=== PATIENT | male | born 1955 | race Two or more races ===

== ENCOUNTER 2025-02-26 19:46 | Inpatient (IN) | payer OTHER ==
[~2025-02-26] VITALS: Ht 167.6 cm; Wt 65.6 kg
--- NOTE | 2025-02-26 20:23 | ECG ---
[facility] Test Date: 2025-02-26 Test Time: 20:07:21 Pat Name: MENDY COY Department: [facility] ED Patient ID: [facility]-[id number] Room: [address] [place] [address] Gender: M Cash Management Coordinator: RITU : 1955 Requested By: EMERGENCY EMERGENCY Order Number: [id number] Reading MD: Dmitriy Freire Measurements Intervals [place] Rate: 82 P: 70 CO: 141 QRS: 71 QRSD: 88 T: 17 QT: 379 QTc: 443 Interpretive Statements Sinus rhythm LAE, consider biatrial enlargement RSR' in V1 or V2, probably normal variant Borderline repolarization abnormality Borderline ST elevation, anterior leads Electronically Signed On 03-03-2025 14:21:24 PDT by Dmitriy Freire Please click the below link to view image of tracing.
[2025-02-26] MEDS ORDERED: LABETALOL HCL 20 MG/4 ML VL IV ONE (21:15)
--- NOTE | 2025-02-26 21:54 | DVH ---
CHEST RADIOGRAPH Indication: cp Technique: Single frontal view of the chest was obtained Comparison: None FINDINGS: Lines and Tubes: None Lungs: No focal consolidation. Pleura: No effusion. No pneumothorax. Cardiomediastinal contours: Unremarkable Bones: No acute osseous abnormality. IMPRESSION: 1. No acute cardiopulmonary disease.
[2025-02-26 21:55] LABS: Hematocrit 36.4 % (41.0-53.0); Hemoglobin 12.5 g/dL (13.5-17.5); Mean Corpuscular Hemoglobin 31.0 pg (28.0-32.0); Mean Corpuscular Volume 90.6 fL (80.0-100.0); Nucleated Red Blood Cells % 0.0 %
--- NOTE | 2025-02-26 21:59 | ED.PDOC ---
HPI Comments 69 year old male presents to the ED with a chief complaint of hypertension onset today (02/26/25). Patient states he went for prescription refill with PCP, BP was elevated, was given medication, advised to go to urgent care. Patient states he went to urgent care, BP was elevated, medication was given, BP was still elevated, recommended to come to ED. Upon ED arrival, BP was 230/127. He states he is compliant with his medication, takes Lisinopril, Metformin daily. Current ly he is experiencing blurred vision. Denies headache, dizziness, chest pain, shortness of breath, fever, chills, numbness/tingling, nausea, vomiting, diarrhea. No other symptoms or modifying factors present at this time. Chief Complaint: High Blood Pressure Time Seen by MD: 21:40 Reviewed Notes: Medications, Allergies Allergies: Coded Allergies: NO KNOWN ALLERGIES (Unverified , 02/26/25) Information Source: Patient, Spouse Mode of Arrival: Ambulatory Severity: Moderate Timing: Hours Duration: Since onset Prehospital treatment: None Onset: At Rest Cardiac Risk Factors: Hyperlipidemia, HTN, Diabetes PE Risk Factors: None History of: None Modifying Factors: Nothing Associated Signs and Symptoms: Other Vital Signs Vital Signs Date Time Temp Pulse Resp B/P (MAP) Pulse Ox O2 Delivery O2 Flow Rate FiO2 02/27/25 02:21 206/91 02/27/25 02:17 97.4 75 16 99 97.4 Physical Exam PHYSICAL EXAM: General: Awake, alert and oriented. No acute distress. Skin: Skin in warm, dry and intact. Appropriate color for ethnicity. HEENT: The head is normocephalic and atraumatic. Conjunctivae are clear without exudates or hemorrhage. Sclera is non-icteric. EOM are intact. No signs of nystagmus. Eyelids are normal in appearance without swelling or lesions. Oral mucosa is pink and moist Neck: The neck is supple with normal range of motion. No JVD. Cardiac: Heart rate and rhythm are normal. No murmurs, gallops, or rubs are auscultated. Respiratory: No signs of respiratory distress. Lung sounds are clear in all lobes bilaterally without rales, rhonchi, or wheezes. Abdominal: Abdomen is soft, non-tender without distention, guarding or rigidity. Bowel sounds are present and normoactive in all four quadrants. Extremities: Upper and lower extremities are atraumatic in appearance without deformity or edema. Neurological: The patient is awake, alert and oriented to person, place, and time with normal speech. Speech is clear. There is no facial asymmetry. Psychiatric: Appropriate mood and affect. Good judgement and insight. Review of Systems: REVIEW OF SYSTEMS: General: No fever, no chills, or fatigue HEENT: No sore throat, no earache, no congestion, no neck pain. Cardiac: No chest pain. No palpitations. Lungs: No shortness of breath, no cough. GI: No nausea, no vomiting, no diarrhea, no constipation, no abdominal pain : No dysuria, frequency, or urgency. No hematuria. Musculoskeletal: No joint pain , no joint swelling, no extremity edema. Skin: No rash, no itching. Neuro: No headache, no dizziness, no weakness Past Medical History PAST MEDICAL HISTORY: DM, High Lipids, HTN Surgical History: Denies all surgeries Family History Family History: Reviewed,noncontributory to illness, No family hx of Cancer, No family hx of DM, No family hx of Heart thomas, No family hx of HTN, No family hx ofKidney thomas, No family hx of Liver thomas, No family hx of Lung thomas, No family hx of Stroke Social History Smoker: Non-Smoker Alcohol: Denies ETOH Use Drugs: Denies Drug Use Lives In: Home EKG EKG : Pulse Rate (adult): 82 Cardiac Rhythm: NSR Hypertrophy: LAE Was a procedure done? Was a procedure done?: No CP Differential Dx Differential Diagnosis: Other (Differential diagnoses considered include acute ischemic coronary syndrome, aortic dissection, cardiac tamponade, mediastinitis, pulmonary embolus, pneumothorax, tension pneumothorax, esophageal rupture, coronary artery vasospasm, myocarditis, pericarditis, pneumonia, pulmonary edema, esophageal tear, pancreatitis, aortic stenosis, dilated cardiomyopathy, hypertrophic cardiomyopathy, mitral valve prolapse, malignancy, pleuritis, pneumomediastinum, primary pulmonary hypertension, cholecystitis, esophageal spasm, esophagus, gastritis, GERD, peptic ulcer disease, costochondritis, fibromyalgia, rib fracture, herpes zoster, radicular syndromes, thoracic outlet syndrome, somatization.) X-Ray, Labs, Meds, VS Vital Signs Date Time Temp Pulse Resp B/P (MAP) Pulse Ox O2 Delivery O2 Flow Rate FiO2 02/27/25 02:21 206/91 10/23/25 02:17 97.4 75 16 (129) 99 97.4 02/26/25 23:46 185/100 (128) 02/26/25 21:59 82 02/26/25 20:07 82 02/26/25 19:48 91 18 230/127 99 Lab Test 02/26/25 22:50 02/26/25 21:31 Range/Units Troponin I High Sensitivity 11 10 </=54 ng/L White Blood Count 10.1 4.4-10.8 10^3/uL Red Blood Count 4.02 L 4.5-5.90 10^6/uL Hemoglobin 12.5 L 13.5-17.5 g/dL Hematocrit 36.4 L 41.0-53.0 % Mean Corpuscular Volume 90.6 80.0-100.0 fL Mean Corpuscular Hemoglobin 31.0 28.0-32.0 pg Mean Corpuscular Hemoglobin Concent 34.2 32.0-36.0 g/dL Red Cell Distribution Width 13.4 11.8-14.3 % Platelet Count 422 140-450 10^3/uL Mean Platelet Volume 7.3 6.9-10.8 fL Neutrophils (%) (Auto) 68.3 37.0-80.0 % Lymphocytes (%) (Auto) 20.9 10.0-50.0 % Monocytes (%) (Auto) 7.2 0.0-12.0 % Eosinophils (%) (Auto) 3.0 0.0-7.0 % Basophils (%) (Auto) 0.6 0.0-2.0 % Neutrophils # (Auto) 6.9 1.6-8.6 10 ^3/uL Lymphocytes # (Auto) 2.1 0.4-5.4 10 ^3/uL Monocytes # (Auto) 0.7 0-1.3 10 ^3/uL Eosinophils # (Auto) 0.3 0-0.8 10 ^3/uL Basophils # (Auto) 0.1 0-0.2 10 ^3/uL Nucleated Red Blood Cells 0.0 % Sodium Level 141 136-145 mmol/L Potassium Level 4.6 3.5-5.1 mmol/L Chloride Level 107 98-107 mmol/L Carbon Dioxide Level 25 20-31 mmol/L Anion Gap 9 5-15 Blood Urea Nitrogen 30 H 9-23 mg/dL Creatinine 1.85 H 0.700-1.30 mg/dL Glomerular Filtration Rate Calc 39 >90 mL/min BUN/Creatinine Ratio 16.2 10.0-20.0 Serum Glucose 71 L 74-106 mg/dL Calcium Level 8.9 8.7-10.4 mg/dL B-Type Natriuretic Peptide 111.71 0-100 pg/mL Current Medications Medications (Trade) Dose Ordered Sig/[place] Route Start Time Stop Time Status Last Admin Hydralazine HCl (Apresoline Injection) 10 mg ONCE ONCE IV 02/27/25 02:15 02/27/25 02:16 DC 02/27/25 02:21 [place] [id number] Ph: [phone] DIAGNOSTIC IMAGING Diagnostic Imaging Report : [id number] Signed PATIENT: MENDY COY ACCT: [id number] UNIT: [id number] : 1955 LOC: ER ROOM / BED: / AGE / SEX: 69 / M ADM STATUS: REG ER SERVICE 11 ORDERING PHYSICIAN: GARY CELIS MD PROCEDURE(s): CXR1 - CHEST XRAY 1 VIEW REASON: cp ORDER NUMBER(s): [id number], ACCESSION NUMBER(s): [id number] CHEST RADIOGRAPH Indication: cp Technique: Single frontal view of the chest was obtained Comparison: None FINDINGS: Lines and Tubes: None Lungs: No focal consolidation. Pleura: No effusion. No pneumothorax. Cardiomediastinal contours: Unremarkable Bones: No acute osseous abnormality. IMPRESSION: 1. No acute cardiopulmonary disease. ATED BY: ANNEMARIE PHILLIPS Jr., DO DICTATED DATE/TIME: 02/26/252151 SIGNED BY: ANNEMARIE PHILLIPS Jr., DO SIGNED DATE/TIME: 02/26/252151 CC: Time of 1ST Reevaluation: 22:10 Reevaluation 1ST: Unchanged Patient Education/Counseling: Diagnosis, Treatment, Need For Follow Up Family Education/Counseling: Diagnosis, Treatment, Need For Follow Up SEPSIS Sepsis Screen Date sepsis recognized/suspect: Feb 26, 2025 Time Sepsis recognized/suspect: 1951 Recent Procedure: No On Antibiotic Therapy: No Respiratory Rate >20: No Heart Rate >90: No Temp<36 C (96.8 F) or >38.3 C: No SBP <90 or MAP <65 mmHG: No New Acute Mental Status Change: No Is the patient on CPAP, BIPAP,: No Physician Orders Chest Xray 1 View (02/26/25 21:12) Vital Signs Q1HR (02/26/25 21:12) Saline Lock (02/26/25 21:12) Batching Operator (02/26/25 ) Vital Signs Date Time Temp Pulse Resp B/P (MAP) Pulse Ox O2 Delivery O2 Flow Rate FiO2 02/27/25 02:21 206/91 02/27/25 02:17 97.4 75 16 206/ (129) 99 97.4 02/26/25 23:46 185/100 (128) 02/26/25 21:59 82 02/26/25 20:07 82 02/26/25 19:48 91 18 230/127 99 Laboratory Tests Test 02/26/25 21:31 White Blood Count 10.1 10^3/uL (4.4-10.8) Medications Medications Dose Ordered Sig/[place] Route Start Time Stop Time Status Last Admin Dose Admin Hydralazine HCl 10 mg ONCE ONCE IV 02/27/25 02:15 02/27/25 02:16 DC 02/27/25 02:21 Departure 1 Departure Time of Disposition: 00:28 Impression: Primary Impression: Hypertensive urgency Additional Impression: BRYAN (acute kidney injury) Disposition: ADMITTED INPATIENT Condition: Stable Comments MDM: Patient admitted to hospitalist service for further treatment, evaluation and monitoring. Extensive evaluation was performed in attempt to identify or rule out: (See differential diagnosis section) The following tests were ordered, and results were reviewed by me and discussed with patient: (See diagnostic results section) The following test were independently interpreted by me: EKG I reviewed and agreed with the following test results read by other providers: Chest x-ray I reviewed the following notes from the pt's past medical encounters: N/A Additional information was gathered from interviewing the following independent historians: Patient's family at bedside Decision regarding hospitalization or escalation of hospital level of care: Risk and benefits of admission for further treatment of patient's condition was considered. Due to patient's current clinical condition, high risk of decline and poor outcome if discharged and need for further inpatient management and monitoring, patient will be admitted to the hospital. Critical Care Note Critical Care Time?: No Stability Stability form required: No Heart Score Heart Score: Heart Score Response (Comments) Value History N/A 0 EKG N/A 0 Age N/A 0 Risk Factors N/A 0 Troponin N/A 0 Total 0 I personally scribed for GARY CELIS MD ([email or web address]) on 02/26/25 at 21:59. Electronically submitted by Joanna Michael ([email or web address]). I personally scribed for GARY CELIS MD ([email or web address]) on 02/26/25 at 23:19. Electronically submitted by Joanna Michael ([email or web address]). GARY CELIS MD Feb 26, 2025 21:59
[2025-02-26 22:07] LABS: Potassium 4.6 mmol/L (3.5-5.1); Sodium 141 mmol/L (136-145)
[2025-02-26 22:08] LABS: Anion Gap 9 (5-15); Carbon Dioxide 25 mmol/L (20-31)
[2025-02-26 22:09] LABS: Calcium 8.9 mg/dL (8.7-10.4)
[2025-02-26 22:14] LABS: BUN/Creatinine Ratio 16.2 (10.0-20.0); Blood Urea Nitrogen 30 mg/dL (9-23); Chloride 107 mmol/L (98-107); Glucose 71 mg/dL (74-106)
[2025-02-27] MEDS: LABETALOL HCL 20 MG/4 ML VL IV ONE (02:20)
[2025-02-27] MEDS: hydrALAZINE HCL 20 MG/ML VL IV ONE (02:21)
[2025-02-27] MEDS ORDERED: ONDANSETRON HCL 4 MG/2 ML VIAL IV PRN (03:15)
[2025-02-27] MEDS: SOD CHL 0.45% 1,000 ML IV SCH (03:15)
[2025-02-27] MEDS ORDERED: DOCUSATE SOD 100 MG CAP PO PRN (03:15)
[2025-02-27] MEDS ORDERED: DEXTROSE (50%) 50ML SYRG IV PRN (03:15)
[2025-02-27] MEDS ORDERED: ACETAMINOPHEN 325 MG TAB PO PRN (03:15)
[2025-02-27] MEDS ORDERED: MORPHINE SULFATE INJ 2 MG/ml SYRG IV PRN ×2 (03:15)
[2025-02-27] MEDS ORDERED: HYDROcodone-ACET 5/325MG TAB PO PRN (03:15)
[2025-02-27] MEDS ORDERED: NITROGLYCERIN 0.4 MG SL TAB SL PRN (03:15)
--- NOTE | 2025-02-27 03:19 | DVHHP2 ---
History of Present Illness Reason for Visit: Hypertension History of Present Illness 69-year-old male with past medical history of DM, hypertension, hyperlipidemia presents for uncontrolled blood pressure. Patient initially went to his PCP office for dental pain and was then sent to urgent care for high blood pressure. While he was at urgent care he was treated with clonidine which was ineffective. Patient states he is on lisinopril 20 mg for high blood pressure. And atorvastatin 20 mg for HLD. On arrival to the emergency department patient's blood pressure was 230/127. Emergency department ordered IV labetalol which was ineffective. In addition patient was treated with IV hydralazine, blood pressure remained 206/97. During the emergency department evaluation CBC is unremarkable. Na 141, K4.6, BUN 30, creatinine 1.85, GFR 39. BNP 111. Troponin-02/15. CXR no acute cardiopulmonary disease. At this time patient denies fevers, chills, dizziness, headaches, sudden onset blurred vision, shortness of breath, chest pain, palpitations, nausea, vomiting, leg swelling. Cardiovascular: HTN, hyperipidemia Endocrine: Diabetes Smoke: No ALCOHOL: none Drugs: None Lives: with Family Review of Systems Constitutional: No: Fever, Chills, Sweats, Weakness, Malaise, Other Eyes: No: Pain, Vision change, Conjunctivae inflammation, Eyelid inflammation, Other, Redness ENT: Mouth pain; No: Ear pain, Ear discharge, Nose pain, Nose discharge, Nose congestion, Mouth swelling, Throat pain, Throat swelling, Other Respiratory: No: Cough, Dry, Shortness of breath, SOB with excertion, Wheezing, Hemoptysis, Pleuritic Pain, Sputum, Wheezing, Other Cardiovascular: No: Chest Pain, Palpitations, Orthopnea, Paroxysmal Noc. D yspnea, Edema, Lt Headedness, Other Gastrointestinal: No: Nausea, Vomiting, Abdominal Pain, Diarrhea, Constipation, Melena, Hematochezia, Other Genitourinary: No Dysuria, No Frequency, No Incontinence, No Hematuria, No Retention, No Other Musculoskeletal: No: other, neck pain, shoulder pain, arm pain, back pain, hand pain, leg pain, foot pain Skin: No: Rash, Lesions, Jaundice, Bruising, Other Neurological: No: Weakness, Numbness, Incoordination, Change in speech, Confusion, Seizures, Other Allergies: Coded Allergies: NO KNOWN ALLERGIES (Unverified , 02/26/25) Medications Current Medications Medications Dose Ordered Sig/[place]idan Route Start Time Stop Time Status Last Admin Dose Admin Docusate Sodium 100 mg BIDPRN PRN PO 02/27/25 03:15 Acetaminophen 650 mg Q6HP PRN PO 02/27/25 03:15 Sodium Chloride 1,000 ml @ 75 mls/hr [id number] IV 02/27/25 03:15 Acetaminophen/ Hydrocodone Bitart 1 tab Q4HP PRN PO 02/27/25 03:15 Ondansetron HCl 4 mg Q4HP PRN IV 02/27/25 03:15 Morphine Sulfate 2 mg Q4HPRN PRN IV 02/27/25 03:15 Enoxaparin Sodium 40 mg DAILY SC 02/27/25 10:00 Nitroglycerin 0.4 mg Q5MINP PRN SL 02/27/25 03:15 Morphine Sulfate 2 mg Q30M PRN IV 02/27/25 03:15 Nicardipine/ Sodium Chloride 200 ml @ 50 mls/hr Q4H IV 02/27/25 03:15 Diagnostic Test (Pha) 1 strip ACHS 02/27/25 07:00 Insulin Human Regular ACHS SC 02/27/25 07:00 Dextrose 50 ml UD PRN IV 02/27/25 03:15 Hydralazine HCl 10 mg Q4HP PRN IV 02/27/25 03:15 Labetalol HCl 10 mg Q4HP PRN IV 02/27/25 03:15 Atorvastatin Calcium 20 mg DAILY PO 02/27/25 10:00 Metoprolol Tartrate 25 mg BID PO 02/27/25 10:00 UNV Exam Vital Signs Vital Signs Date Time Temp Pulse Resp B/P (MAP) Pulse Ox O2 Delivery O2 Flow Rate FiO2 02/27/25 02:21 206/91 02/27/25 02:17 97.4 75 16 99 97.4 General Appearance: Alert, Oriented X3, Cooperative, mild distress HEENT: Atraumatic, PERRLA, EOMI Respiratory: Clear to auscultation, Normal air movement Cardiovascular: Regular rate, Normal S1, Normal S2 Abdominal: Normal bowel sounds, Soft, No tenderness Extremities: No cyanosis, No edema Skin: No rashes, No breakdown Neuro: Normal gait, Normal speech, Strength at 5/5 X4 ext Psych/Mental Status: Mental status NL, Mood NL Labs/Xrays Labs Test 02/26/25 22:50 02/26/25 21:31 Range/Units Troponin I High Sensitivity 11 </=54 ng/L White Blood Count 10.1 4.4-10.8 10^3/uL Red Blood Count 4.02 L 4.5-5.90 10^6/uL Hemoglobin 12.5 L 13.5-17.5 g/dL Hematocrit 36.4 L 41.0-53.0 % Mean Corpuscular Volume 90.6 80.0-100.0 fL Mean Corpuscular Hemoglobin 31.0 28.0-32.0 pg Mean Corpuscular Hemoglobin Concent 34.2 32.0-36.0 g/dL Red Cell Distribution Width 13.4 11.8-14.3 % Platelet Count 422 140-450 10^3/uL Mean Platelet Volume 7.3 6.9-10.8 fL Neutrophils (%) (Auto) 68.3 37.0-80.0 % Lymphocytes (%) (Auto) 20.9 10.0-50.0 % Monocytes (%) (Auto) 7.2 0.0-12.0 % Eosinophils (%) (Auto) 3.0 0.0-7.0 % Basophils (%) (Auto) 0.6 0.0-2.0 % Neutrophils # (Auto) 6.9 1.6-8.6 10 ^3/uL Lymphocytes # (Auto) 2.1 0.4-5.4 10 ^3/uL Monocytes # (Auto) 0.7 0-1.3 10 ^3/uL Eosinophils # (Auto) 0.3 0-0.8 10 ^3/uL Basophils # (Auto) 0.1 0-0.2 10 ^3/uL Nucleated Red Blood Cells 0.0 % Sodium Level 141 136-145 mmol/L Potassium Level 4.6 3.5-5.1 mmol/L Chloride Level 107 98-107 mmol/L Carbon Dioxide Level 25 20-31 mmol/L Anion Gap 9 5-15 Blood Urea Nitrogen 30 H 9-23 mg/dL Creatinine 1.85 H 0.700-1.30 mg/dL Glomerular Filtration Rate Calc 39 >90 mL/min BUN/Creatinine Ratio 16.2 10.0-20.0 Serum Glucose 71 L 74-106 mg/dL Calcium Level 8.9 8.7-10.4 mg/dL B-Type Natriuretic Peptide 111.71 0-100 pg/mL SEPSIS Sepsis Screen Date sepsis recognized/suspect: Feb 26, 2025 Time Sepsis recognized/suspect: 1951 Recent Procedure: No On Antibiotic Therapy: No Respiratory Rate >20: No Heart Rate >90: No Temp<36 C (96.8 F) or >38.3 C: No SBP <90 or MAP <65 mmHG: No New Acute Mental Status Change: No Is the patient on CPAP, BIPAP,: No Physician Orders Chest Xray 1 View (02/26/25 21:12) Vital Signs Q1HR (02/26/25 21:12) Saline Lock (02/26/25 21:12) Coil Connector (02/26/25 ) Admit (02/27/25 03:02) Code Status (02/27/25 03:02) Vital Signs .PER UNIT PROTOCOL (02/27/25 03:02) Review Orders With Adm.Md (02/27/25 03:02) Encourage Activity As Tolerate (02/27/25 03:02) Consistent Carb(Ccho)Diabetes (02/27/25 Breakfast) Oxygen By Face Mask (02/27/25 03:02) Docusate Sodium Capsule (Colace Capsule) (02/27/25 03:15) Acetaminophen Tablet (Tylenol Tablet) (02/27/25 03:15) Notify Md Of Changes From Base (02/27/25 03:02) Advance Directive (02/27/25 03:02) Echo 2d Mode Cardiac Dop (02/27/25 03:02) Basic Metabolic Panel (02/27/25 05:00) Basic Metabolic Panel (02/28/25 05:00) Basic Metabolic Panel (03/01/25 05:00) Basic Metabolic Panel (03/02/25 05:00) Urinalysis (02/27/25 03:02) Complete Blood Count (02/27/25 05:00) Complete Blood Count (02/28/25 05:00) Complete Blood Count (03/01/25 05:00) Complete Blood Count (03/02/25 05:00) Sod Chl 0.45% (Sodium Chloride 0.45% Via (02/27/25 03:15) Patient Condition (02/27/25 03:02) Allergies (02/27/25 03:02) Hydrocodone-Acet 5/325mg Tab ([place] 5/32 (02/27/25 03:15) Ondansetron Hcl (Zofran) (02/27/25 03:15) Drug Screen (02/27/25 03:02) Morphine Sulfate Injection (02/27/25 03:15) Enoxaparin Sodium (Lovenox) (02/27/25 10:00) Sequential Compression Device (02/27/25 ) Nitroglycerin Sublingual (Ntrostat Subli (02/27/25 03:15) Morphine Sulfate Injection (02/27/25 03:15) Stat Ekg For Chest Pain (02/27/25 03:02) Notify Of Changes From Base (02/27/25 03:02) Field Trainer For 24 Hours (02/27/25 03:02) Emergency Dysrhythmia Protocol (02/27/25 03:02) Rhythm Strips Once Every Shift (02/27/25 03:02) Oxygen By Nasal Cannula (02/27/25 03:02) Nicardipine 20 Mg/200 Ml (Cardene Iv) (02/27/25 03:15) * Cardiology Consult (02/27/25 03:02) Glucose Blood (Accu-Chek Comfort Curve T (02/27/25 07:00) Insulin R (Human) (Insulin R) (02/27/25 07:00) Dextrose 50% Syringe (02/27/25 03:15) Hydralazine Injection (Apresoline Inject (02/27/25 03:15) Labetalol Hcl (Labetalol Hcl) (02/27/25 03:15) Atorvastatin (Lipitor) (02/27/25 10:00) Metoprolol Tartrate Tablet (Lopressor Ta (02/27/25 10:00) Vital Signs Date Time Temp Pulse Resp B/P (MAP) Pulse Ox O2 Delivery O2 Flow Rate FiO2 02/27/25 02:21 206/91 02/27/25 02:17 97.4 75 16 206/91 (129) 99 97.4 02/26/25 23:46 185/100 (128) 02/26/25 21:59 82 02/26/25 20:07 82 02/26/25 19:48 91 18 230/127 99 Laboratory Tests Test 02/26/25 21:31 White Blood Count 10.1 10^3/uL (4.4-10.8) Medications Medications Dose Ordered Sig/[place] Route Start Time Stop Time Status Last Admin Dose Admin Hydralazine HCl 10 mg ONCE ONCE IV 02/27/25 02:15 02/27/25 02:16 DC 02/27/25 02:21 10 MG Assessment/Plan Assessment/Plan Hypertensive urgency Acute kidney injury Plan Admit ICU Cardiology consult. Echocardiogram. Nicardipine drip. As needed antihypertensives for optimal BP management. Consult nephrology. Monitor BMP. Trend BUN/creatinine. Correct electrolytes as needed. Hold lisinopril. IVF DVT PPX Lovenox Plan discussed with: Patient, Spouse My Orders Orders - CHENTE MAGAÑA NP Procedure Category Date Status Time Admit ADMIT 02/27/25 Transmitted 03:02 Code Status CODE 02/27/25 Transmitted 03:02 Vital Signs RADHA 02/27/25 In Process 03:02 Review Orders With RADHA 02/27/25 In Process Adm. 03:02 Encourage Activity As RADHA 02/27/25 In Process Tolerate 03:02 Consistent DIET 02/27/25 Transmitted Carb(Ccho)Diabetes Breakfast Oxygen By Face Mask RT 02/27/25 Transmitted 03:02 Docusate Sodium PHA 02/27/25 In Process Capsule (Colace 03:15 Acetaminophen Tablet PHA 02/27/25 In Process (Tylenol Tablet) 03:15 Notify Of Changes RADHA 02/27/25 In Process From Base 03:02 Advance Directive RADHA 02/27/25 In Process 03:02 Echo 2d Mode Cardiac US 02/27/25 Logged DOP 03:02 Basic Metabolic Panel LAB 02/27/25 Logged 05:00 Basic Metabolic Panel LAB 02/28/25 Verified 05:00 Basic Metabolic Panel LAB 03/01/25 Verified 05:00 Basic Metabolic Panel LAB 03/02/25 Verified 05:00 Urinalysis LAB 02/27/25 Logged 03:02 Complete Blood Count LAB 02/27/25 Logged 05:00 Complete Blood Count LAB 02/28/25 Verified 05:00 Complete Blood Count LAB 03/01/25 Verified 05:00 Complete Blood Count LAB 03/02/25 Verified 05:00 Sod Chl 0.45% (Sodium PHA 02/27/25 In Process Chloride 0.45% Via 03:15 Patient Condition ORDERS 02/27/25 Transmitted 03:02 Allergies RADHA 02/27/25 In Process 03:02 Hydrocodone-Acet PHA 02/27/25 In Process 5/325mg Tab ([place] 03:15 Ondansetron Hcl PHA 02/27/25 In Process (Zofran) 03:15 Drug Screen LAB 02/27/25 Logged 03:02 Morphine Sulfate PHA 02/27/25 In Process Injection 03:15 Enoxaparin Sodium PHA 02/27/25 In Process (Lovenox) 10:00 Sequential RADHA 02/27/25 In Process Compression Device Nitroglycerin PHA 02/27/25 In Process Sublingual (Ntrostat 03:15 Morphine Sulfate PHA 02/27/25 In Process Injection 03:15 Stat Ekg For Chest RADHA 02/27/25 In Process Pain 03:02 Notify Md Of Changes RADHA 02/27/25 In Process From Base 03:02 Field Trainer For RADHA 02/27/25 In Process 24 Hours 03:02 Emergency Dysrhythmia RADHA 02/27/25 In Process Protocol 03:02 Rhythm Strips Once RADHA 02/27/25 In Process Every Shift 03:02 Oxygen By Nasal RT 02/27/25 Transmitted Cannula 03:02 Nicardipine 20 Mg/200 PHA 02/27/25 In Process Ml (Cardene Iv) 03:15 * Cardiology Consult CONS 02/27/25 Transmitted 03:02 Glucose Blood PHA 02/27/25 In Process (Accu-Chek Comfort 07:00 Insulin R (Human) PHA 02/27/25 In Process (Insulin R) 07:00 Dextrose 50% Syringe PHA 02/27/25 In Process 03:15 Hydralazine Injection PHA 02/27/25 In Process (Apresoline Inject 03:15 Labetalol Hcl PHA 02/27/25 In Process (Labetalol Hcl) 03:15 Atorvastatin (Lipitor) PHA 02/27/25 In Process 10:00 Metoprolol Tartrate PHA 02/27/25 Logged Tablet (Lopressor Ta 10:00 Date of Service: Feb 27, 2025 Billing Provider: IRAIDA VARNER MD Common Visit Codes: NOT BILLABLE CHENTE MAGAÑA NP Feb 27, 2025 03:19
[2025-02-27] MEDS: LABETALOL HCL 20 MG/4 ML VL IV PRN (03:41)
[2025-02-27 03:52] VITALS: PULSE 74; RESP 20; O2SAT 97
[2025-02-27] MEDS: hydrALAZINE HCL 20 MG/ML VL IV PRN (05:11)
[2025-02-27] MEDS: InsuLIN REG 1unit/0.01ml Soln (100units/ml) SC SCH (07:00)
[2025-02-27] MEDS: ACCU-CHEK COMFORT CURVE STRIP VI SCH (07:02)
[2025-02-27 08:00] VITALS: PULSE 92; RESP 17; O2SAT 97
[2025-02-27 08:42] LABS: Urine Protein, UAD 2+ (Negative)
[2025-02-27 08:43] LABS: Amphetamine Screen, Urine Neg (NEGATIVE); Barbiturate Scree,Urine Neg (NEGATIVE); Benzodiazephine Screen, Urine Neg (NEGATIVE); Cannabinoid Screen, Urine Neg (NEGATIVE); Cocaine Screen, Urine Neg (NEGATIVE); Opiate Scree,Urine Neg (NEGATIVE); Phencyclidine Screen, Urine Neg (NEGATIVE)
[2025-02-27 09:34] LABS: Hematocrit 37.0 % (41.0-53.0); Hemoglobin 12.7 g/dL (13.5-17.5); Mean Corpuscular Hemoglobin 30.6 pg (28.0-32.0); Mean Corpuscular Volume 89.5 fL (80.0-100.0); Nucleated Red Blood Cells % 0.2 %
[2025-02-27] MEDS ORDERED: METOPROLOL TARTRATE 25 MG TAB PO SCH (10:00)
[2025-02-27] MEDS: ENOXAPARIN SOD 40 MG/0.4 ML SYRINGE SC SCH (10:49)
[2025-02-27] MEDS: ATORVASTATIN 20 MG TAB PO SCH (10:49)
--- NOTE | 2025-02-27 11:18 | DVHINCON2 ---
Date Seen: Feb 27, 2025 Referring Physician Teto MARIN Reason for Consultation hypertensive emergency History of Present Illness This is a 69-year-old gentleman with a past medical history significant for hypertension, diabetes mellitus, and hyperlipidemia who presented due to uncontrolled blood pressure. The patient was evaluated by his PCP, who referred him to urgent care for persistently elevated blood pressure despite treatment with clonidine, which was ineffective. He denies any history of known cardiac disease, chest pain, dyspnea, orthopnea, palpitations, or syncope. At presentation, his blood pressure remained elevated, and he was started on a nicardipine drip for blood pressure control. The drip was discontinued approximately one hour prior to evaluation. The patient was transitioned to oral therapy with nifedipine 90 mg daily to assess tolerance. A repeat CMP is pending to determine renal function before initiating an LUZ inhibitor or ARB. The plan is to reassess renal function and blood pressure response Past Medical History Past Medical History: Hypertension Diabetes mellitus Hyperlipidemia Past Surgical History: None reported. Medications: Lisinopril 20 daily Metformin 850 mg TID Atorvastatin Allergies: Coded Allergies: NO KNOWN ALLERGIES (Unverified , 02/26/25) Current Medications Current Medications Medications (Trade) Dose Ordered Sig/[place] Route PRN Reason Start Time Stop Time Status Last Admin Docusate Sodium (Colace Capsule) 100 mg BIDPRN PRN PO FOR CONSTIPATION 02/27/25 03:15 Acetaminophen (Tylenol Tablet) 650 mg Q6HP PRN PO PAIN SCALE 1-3 OR TEMP>100.4 02/27/25 03:15 Sodium Chloride 1,000 ml @ 75 mls/hr [id number] IV 02/27/25 03:15 02/27/25 03:15 Acetaminophen/ Hydrocodone Bitart ([place] 5/325MG Tab) 1 tab Q4HP PRN PO MODERATE PAIN (4-6 PAIN SCALE) 02/27/25 03:15 Ondansetron HCl (Zofran) 4 mg Q4HP PRN IV NAUSEA / VOMITING 02/27/25 03:15 Morphine Sulfate 2 mg Q4HPRN PRN IV SEVERE PAIN (7-10 PAIN SCALE) 02/27/25 03:15 Enoxaparin Sodium (Lovenox) 40 mg DAILY SC 02/27/25 10:00 02/27/25 10:49 Nitroglycerin (Ntrostat Sublingual) 0.4 mg Q5MINP PRN SL FOR CHEST PAIN 02/27/25 03:15 Morphine Sulfate 2 mg Q30M PRN IV FOR CHEST PAIN 02/27/25 03:15 Nicardipine/ Sodium Chloride 200 ml @ 50 mls/hr Q4H IV 02/27/25 03:15 02/27/25 07:40 Diagnostic Test (Pha) (Accu-Chek Comfort Curve T) 1 strip ACHS 02/27/25 07:00 02/27/25 07:02 Insulin Human Regular (InsuLIN R) ACHS SC 02/27/25 07:00 Dextrose 50 ml UD PRN IV Blood Sugar LESS THAN 60 02/27/25 03:15 Hydralazine HCl (Apresoline Injection) 10 mg Q4HP PRN IV SBP > 160 02/27/25 03:15 02/27/25 05:11 Labetalol HCl (Labetalol HCl) 10 mg Q4HP PRN IV SBP>180 02/27/25 03:15 02/27/25 09:47 DC 02/27/25 03:41 Atorvastatin Calcium (Lipitor) 20 mg DAILY PO 02/27/25 10:00 02/27/25 10:49 Metoprolol Tartrate (Lopressor Tablet) 25 mg BID PO 02/27/25 10:00 02/27/25 09:47 DC Nifedipine (Procardia Xl (Time-Release)) 90 mg DAILY PO 02/27/25 10:00 02/27/25 10:49 Review of Systems Negative for chest pain, shortness of breath, orthopnea, PND, palpitations, dizziness, or leg swelling. No headaches, visual changes, or focal weakness. No nausea, vomiting, or diaphoresis. Vital Signs Vital Signs Date Time Temp Pulse Resp B/P (MAP) Pulse Ox O2 Delivery O2 Flow Rate FiO2 02/27/25 10:49 130/68 02/27/25 10:15 88 17 97 02/27/25 08:00 Room Air* 0 21 02/27/25 07:03 98.1 98.1 Physical Exam General: Alert, oriented, in no acute distress. HEENT: No JVD, no carotid bruits. Cardiovascular: Regular rate and rhythm, no murmurs, rubs, or gallops. Respiratory: Lungs clear to auscultation bilaterally. Abdomen: Soft, non-tender, no organomegaly. Extremities: No edema, pulses palpable. Neuro: Grossly intac Labs/Diagnostic Data Labs Test 02/27/25 09:02 02/27/25 07:50 02/26/25 22:50 02/26/25 21:31 Range/Units White Blood Count 8.1 4.4-10.8 10^3/uL Red Blood Count 4.13 L 4.5-5.90 10^6/uL Hemoglobin 12.7 L 13.5-17.5 g/dL Hematocrit 37.0 L 41.0-53.0 % Mean Corpuscular Volume 89.5 80.0-100.0 fL Mean Corpuscular Hemoglobin 30.6 28.0-32.0 pg Mean Corpuscular Hemoglobin Concent 34.2 32.0-36.0 g/dL Red Cell Distribution Width 13.4 11.8-14.3 % Platelet Count 356 140-450 10^3/uL Mean Platelet Volume 7.4 6.9-10.8 fL Neutrophils (%) (Auto) 65.5 37.0-80.0 % Lymphocytes (%) (Auto) 21.7 10.0-50.0 % Monocytes (%) (Auto) 7.9 0.0-12.0 % Eosinophils (%) (Auto) 3.9 0.0-7.0 % Basophils (%) (Auto) 1.0 0.0-2.0 % Neutrophils # (Auto) 5.3 1.6-8.6 10 ^3/uL Lymphocytes # (Auto) 1.7 0.4-5.4 10 ^3/uL Monocytes # (Auto) 0.6 0-1.3 10 ^3/uL Eosinophils # (Auto) 0.3 0-0.8 10 ^3/uL Basophils # (Auto) 0.1 0-0.2 10 ^3/uL Nucleated Red Blood Cells 0.2 % Urine Color Colorless Yellow Urine Clarity Clear Clear Urine pH 6.0 5.0-9.0 Urine Specific [place] 1.011 1.001-1.035 Urine Protein 2+ H Negative Urine Ketones Trace Negative Urine Blood Trace H Negative /uL Urine Nitrite Negative Negative Urine Bilirubin Negative Negative Urine Urobilinogen Normal Negative mg/dL Urine Leukocyte Esterase Negative Negative /uL Urine RBC <1 0 - 3 /hpf Urine Microscopic WBC < 1 0-3 /HPF Urine Squamous Epithelial Cells Few <5 /hpf Urine Bacteria None seen None Seen /hpf Urine Glucose Normal Normal mg/dL Urine Opiates Screen Neg NEGATIVE Urine Fentanyl Screen Neg NEGATIVE Urine Barbiturates Screen Neg NEGATIVE Urine Phencyclidine Screen Neg NEGATIVE Urine Amphetamines Screen Neg NEGATIVE Urine Benzodiazepines Screen Neg NEGATIVE Urine Cocaine Screen Neg NEGATIVE Urine Cannabinoids Screen Neg NEGATIVE Troponin I High Sensitivity 11 </=54 ng/L B-Type Natriuretic Peptide 111.71 0-100 pg/mL Assessment Hypertensive emergency with BRYAN resolving Hypertension DM type 2 Hyperlipidemia Plan/Recommendation Currently off nicardipine drip; transitioned to nifedipine 90 mg daily . Continue to monitor blood pressure and renal function. CMP is pending; if creatinine improves, patient may be started on an LUZ inhibitor or ARB for long- term management. Continue home antihypertensive regimen as tolerated. Avoid aggressive BP lowering given chronic hypertension. Continue to monitor for symptoms of end-organ damage. Troponins are negative, EKG normal and ECHO is pending Pending nephrology recommendations Discussed with Dr. Freire Time spent on critical care 71 min Plan discussed with: Patient NYHA Physical activity limitations: Class1(None)absent sob, Date of Service: Feb 27, 2025 Billing Provider: ODALIS FREIRE Sr., MD Cardiology Common Codes: [id number] CARE 30-74 MIN HELENA DAVENPORT RESIDENT Feb 27, 2025 11:18
[2025-02-27 12:00] VITALS: TEMP 98.1
[2025-02-27 14:00] VITALS: BP 137/73; PULSE 77; RESP 17; O2SAT 97
[2025-02-27] MEDS ORDERED: NIFE90TA75 PO (14:09)
--- NOTE | 2025-02-27 14:55 | DVHDS2 ---
Discharge Summary Date of Admission Feb 27, 2025 at 03:02 Date of Discharge: Feb 27, 2025 Labs/Diagnostic Data: Laboratory Results Test 02/27/25 12:19 02/27/25 09:02 02/27/25 07:50 02/26/25 22:50 POC Glucose 206 mg/dl (70-106) White Blood Count 8.1 10^3/uL (4.4-10.8) Red Blood Count 4.13 10^6/uL (4.5-5.90) Hemoglobin 12.7 g/dL (13.5-17.5) Hematocrit 37.0 % (41.0-53.0) Mean Corpuscular Volume 89.5 fL (80.0-100.0) Mean Corpuscular Hemoglobin 30.6 pg (28.0-32.0) Mean Corpuscular Hemoglobin Concent 34.2 g/dL (32.0-36.0) Red Cell Distribution Width 13.4 % (11.8-14.3) Platelet Count 356 10^3/uL (140-450) Mean Platelet Volume 7.4 fL (6.9-10.8) Neutrophils (%) (Auto) 65.5 % (37.0-80.0) Lymphocytes (%) (Auto) 21.7 % (10.0-50.0) Monocytes (%) (Auto) 7.9 % (0.0-12.0) Eosinophils (%) (Auto) 3.9 % (0.0-7.0) Basophils (%) (Auto) 1.0 % (0.0-2.0) Neutrophils # (Auto) 5.3 10 ^3/uL (1.6-8.6) Lymphocytes # (Auto) 1.7 10 ^3/uL (0.4-5.4) Monocytes # (Auto) 0.6 10 ^3/uL (0-1.3) Eosinophils # (Auto) 0.3 10 ^3/uL (0-0.8) Basophils # (Auto) 0.1 10 ^3/uL (0-0.2) Nucleated Red Blood Cells 0.2 % Urine Color Colorless (Yellow) Urine Clarity Clear (Clear) Urine pH 6.0 (5.0-9.0) Urine Specific [place] 1.011 (1.001-1.035) Urine Protein 2+ (Negative) Urine Ketones Trace (Negative) Urine Blood Trace /uL (Negative) Urine Nitrite Negative (Negative) Urine Bilirubin Negative (Negative) Urine Urobilinogen Normal mg/dL (Negative) Urine Leukocyte Esterase Negative /uL (Negative) Urine RBC <1 /hpf (0 - 3) Urine Microscopic WBC < 1 /HPF (0-3) Urine Squamous Epithelial Cells Few /hpf (<5) Urine Bacteria None seen /hpf (None Seen) Urine Glucose Normal mg/dL (Normal) Urine Opiates Screen Neg (NEGATIVE) Urine Fentanyl Screen Neg (NEGATIVE) Urine Barbiturates Screen Neg (NEGATIVE) Urine Phencyclidine Screen Neg (NEGATIVE) Urine Amphetamines Screen Neg (NEGATIVE) Urine Benzodiazepines Screen Neg (NEGATIVE) Urine Cocaine Screen Neg (NEGATIVE) Urine Cannabinoids Screen Neg (NEGATIVE) Troponin I High Sensitivity 11 ng/L (</=54) Test 02/26/25 21:31 B-Type Natriuretic Peptide 111.71 pg/mL (0-100) Other Laboratory Tests 02/27/25 09:02 Brief Hx & Hospital Course: 69-year-old male with a known history of diabetes mellitus type 2, hypertension, dyslipidemia presented to the hospital as he was seen by the PCP with a high blood pressure. Patient denies any chest pain palpitation denies any headache. Patient was started on nicardipine drip. Patient's currently off the nicardipine drip started on nifedipine extended release. Patient does have some acute kidney injury with a underlying CKD was recommended to have follow up with the PCP with a repeat BMP as an outpatient. And resume the lisinopril once acute kidney has been resolved. Patient will be given prescription for nifedipine ER 90 mg p.o. daily. Patient is being discharged under stable condition. Daughter was updated at bedside. Condition at Discharge: Stable Final Diagnosis/Problems List 1. Hypertensive emergency, resolved 2. Acute kidney injury with a underlying CKD, stable 3. Diabetes mellitus type 2 4. Dyslipidemia Discharge Disposition: Home SNF Discharge Will this Physician continue t: No Discharge Instruct/Medications Diet: Cardiac 2g Na,low cholest Activity: No Restrictions, As Tolerated Follow Up/Referral: Please follow up with the PCP with a repeat BNP in one week Follow up with the Nephrology as an outpatient. Medications: Nifedipine ER 90 mg p.o. daily as prescribed. New Medications: Nifedipine (Nifedipine Er) 90 Mg Tab 1 TAB PO DAILY, #30 TAB 5 Refills Scheduled Nifedipine (Nifedipine Er), 1 TAB PO DAILY Discharge Statement: "Patient was advised to return to the ER or call 911 if any headaches, dizziness, shortness of breath, chest pain, abdominal pain, bleeding, fevers, or worsening of medical condition. Patient was counseled about treatment plan, medications, possible side effects, patientverbalized understanding. All questions were answered to the best of my ability. This discharge took greater then 30 minutes in planning, reviewing documentation, counseling the patient, and discussing with other team members." ASSESSMENT ASSESSMENT Assessment 1. Hypertensive emergency, resolved 2. Acute kidney injury with a underlying CKD, stable 3. Diabetes mellitus type 2 4. Dyslipidemia Date of Service: Feb 27, 2025 Billing Provider: IRAIDA VARNER MD Common Visit Codes: NOT BILLABLE IRAIDA VARNER MD Feb 27, 2025 14:55
[2025-02-27 15:00] LABS: Anion Gap 12 (5-15)
[2025-02-27 15:05] LABS: BUN/Creatinine Ratio 16.4 (10.0-20.0); Calcium 8.6 mg/dL (8.7-10.4); Carbon Dioxide 21 mmol/L (20-31); Chloride 110 mmol/L (98-107); Potassium 4.0 mmol/L (3.5-5.1); Sodium 143 mmol/L (136-145)
[2025-02-27 15:07] LABS: Blood Urea Nitrogen 26 mg/dL (9-23); Glucose 99 mg/dL (74-106)
--- NOTE | 2025-03-02 14:09 | DVHSR ---
APPROVED REPORT EXAM: Two-dimensional and M-mode echocardiogram with Doppler and color Doppler. Blood Pressure: 140/98 mmHg INDICATION Hypertensive Urgency RISK FACTORS Height: 66, Weight: 144 DIMENSIONS LVDd3.9 (3.8-5.7cm)LA (2D)4.0 (1.9-4.0cm)Aortic Root3.8 (2.0-3.7cm) LVDs2.4 (2.5-4.0cm)LA (MM) (1.9-4.0cm)Aortic Cusp Exc1.9 (1.5-2.0cm) EF (%) 71.0 (55-70%)Rt. Atrium4.1 (1.9-4.0cm)Asc. Aorta cm Mitral Valve MitralMitral Stenosis E wave0.68m/sMV Mean GR.mmHg A wave0.92m/sMV Peak GR.mmHg E/A ratio0.72D MVAcm2 DECEL [id number] 1/2 Rxom24do IVRTmsDop MVA2.92cm2 Aortic Valve Aortic ValveAortic Stenosis V11.09m/Jojo Mean GR.6mmHg V21.58m/Jojo Peak GR.10mmHg LVOT Diameter2.3 (1.8-2.4cm)Doppler AVA2.86cm2 Pulmonic Valve V21.53m/s Conclusion lvef 55% moderate LVH normal rv function left atrium enlarged no severe valve abnormaliteis noted
== END 2025-02-27 14:35 | disposition home or self-care (01) | DRG 305 ==
LOC: ER 19:46 → OVERFLOW 02-27 03:02
PROVIDERS: ADMIT Nurse Practitioner Family; ATTEND Nurse Practitioner Family
DX: I16.1 Hypertensive emergency (principal); N17.9 Acute kidney failure, unspecified; E11.22 Type 2 diabetes mellitus with diabetic chronic kidney disease; E78.5 Hyperlipidemia, unspecified; I12.9 Hypertensive chronic kidney disease with stage 1 through stage 4 chronic kidney disease, or unspecified chronic kidney disease; N18.9 Chronic kidney disease, unspecified; Z79.899 Other long term (current) drug therapy
CPT/HCPCS: 36415; 71045; 80048; 80307; 81001; 82962; 83880; 84484; 85025; 93005; 93306; 96374; G0378; J1815